=== PATIENT | female | born 1995 | race Two or more races ===

== ENCOUNTER 2020-03-16 15:44 | Emergency (ER) | payer MEDICAID ==
[~2020-03-16] VITALS: Ht 152.4 cm; Wt 67.1 kg
[2020-03-16] MEDS ORDERED: SODIUM CHLORIDE 0.9% 1,000 ML IV ONE (16:15)
[2020-03-16 17:09] LABS: Urine Bacteria NONE SEEN /hpf (None Seen); Urine Blood 2+ /uL (Negative); Urine Mucus FEW (None Seen); Urine WBC 2 /hpf (0 - 5)
[2020-03-16 18:19] VITALS: BP 142/82
== END 2020-03-16 18:30 | disposition home or self-care (01) ==
LOC: ER 15:44
DX: E86.0 Dehydration (principal); Z77.098 Contact with and (suspected) exposure to other hazardous, chiefly nonmedicinal, chemicals
CPT/HCPCS: 36600; 81001; 81025; 82805; 96360; 99283; J7030